=== PATIENT | female | born 1980 | race Caucasian/White ===

== ENCOUNTER 2020-05-20 16:36 | Emergency (ER) | payer OTHER ==
[~2020-05-20] VITALS: Ht 157.5 cm; Wt 92.1 kg
[~2020-05-20 16:36] MED LIST: MUPIROCIN15 GM TP; SMZ-TMP DS 800-1 TAB PO
== END 2020-05-20 19:27 | disposition home or self-care (01) ==
LOC: ER 16:36
DX: G54.0 Brachial plexus disorders (principal); M54.2 Cervicalgia

== ENCOUNTER 2022-08-13 11:34 | Emergency (ER) | payer OTHER ==
[~2022-08-13] VITALS: Ht 157.5 cm; Wt 81.6 kg
[2022-08-13] MEDS ORDERED: CIPRO500 MG PO (17:25)
== END 2022-08-13 17:37 | disposition home or self-care (01) ==
LOC: ER 11:34
DX: R10.9 Unspecified abdominal pain (principal)

== ENCOUNTER 2024-05-26 11:33 | Emergency (ER) | payer OTHER ==
[~2024-05-26] VITALS: Ht 162.6 cm; Wt 83.9 kg
[~2024-05-26 11:33] MED LIST changes: +CIPRO500 MG PO
[2024-05-26] MEDS ORDERED: RYTARY ER 23.71 EACH (11:42)
[2024-05-26] MEDS ORDERED: NEUPRO1 EAC3 (11:43)
[2024-05-26] MEDS ORDERED: LORazepam 2 MG/ML VIAL IM STA (13:46)
[2024-05-26] MEDS ORDERED: LORazepam 2 MG/ML VIAL ONE (14:00)
== END 2024-05-26 14:09 | disposition home or self-care (01) ==
LOC: ER 11:35
DX: R53.81 Other malaise (principal); F41.9 Anxiety disorder, unspecified; G20.A1 Parkinson's disease without dyskinesia, without mention of fluctuations

== ENCOUNTER 2024-07-18 05:05 | Emergency (ER) | payer OTHER ==
[~2024-07-18] VITALS: Ht 167.6 cm; Wt 81.6 kg
[~2024-07-18 05:05] MED LIST changes: +NEUPRO1 EAC3; +RYTARY ER 23.71 EACH
[2024-07-18] MEDS ORDERED: HYOSCYAMINE SULFATE 0.125 MG TAB.SUBL SL STA (07:28)
[2024-07-18] MEDS ORDERED: METOCLOPRAMIDE HCL 5 MG/ML VIAL IM STA (07:28)
[2024-07-18] MEDS ORDERED: ONDANSETRON HCL 2 MG/ML VIAL IV STA (07:29)
[2024-07-18] MEDS ORDERED: FAMOtidine 10 MG/ML (4ML VIAL) IV PUSH STA (07:30)
== END 2024-07-18 09:12 | disposition home or self-care (01) ==
LOC: ER 05:07
DX: K21.9 Gastro-esophageal reflux disease without esophagitis (principal); K31.84 Gastroparesis; K29.70 Gastritis, unspecified, without bleeding; R10.9 Unspecified abdominal pain

== ENCOUNTER 2024-10-17 17:39 | Emergency (ER) | payer OTHER ==
[~2024-10-17] VITALS: Ht 157.5 cm; Wt 77.1 kg
[2024-10-17] MEDS ORDERED: AMOX1TAB5 PO (18:44)
== END 2024-10-17 18:50 | disposition home or self-care (01) ==
LOC: ER 17:41
DX: S91.321A Laceration with foreign body, right foot, initial encounter (principal); W45.8XXA Other foreign body or object entering through skin, initial encounter; Y93.F1 Activity, caregiving, bathing; Y92.012 Bathroom of single-family (private) house as the place of occurrence of the external cause

== ENCOUNTER → 2025-04-05 | Emergency (ER) | payer OTHER ==
[~2025-04-05] VITALS: Ht 157.5 cm; Wt 78.0 kg
[~2025-04-05] MED LIST changes: +AMOX-CLAV 875-1 EACH PO; +AMOX1TAB5 PO; +CEFTRIAXONE SODIUM 1,000 MG VIAL IM ONE; +KETOROLAC TROMETHAMINE 60 MG VIAL IM ONE; +PAXLOVID 300-11 EAC1 PO; +PEPCID AC20 MG PO; +TUSNEL LIQUID178 ML PO
[2025-04-05 09:42] LABS: COVID-19 AG POSITIVE (NEGATIVE)
== END | disposition home or self-care (01) ==
LOC: ER 07:45
PROVIDERS: General Practice
DX: U07.1 COVID-19 (principal); H66.91 Otitis media, unspecified, right ear